=== PATIENT | female | born 1960 | race Caucasian/White ===

== ENCOUNTER 2016-08-02 15:12 | Emergency (ER) | payer BC, OTHER ==
[2016-08-02] MEDS ORDERED: ALPRAZolam 0.25 MG TAB PO ONE (15:23)
[2016-08-02] MEDS ORDERED: HYDROcodone 7.5MG/APAP 325MG 1 EA TAB PO ONE (15:23)
[2016-08-02 15:24] VITALS: TEMP 97.6
[2016-08-02] MEDS ORDERED: NEOMYCIN-BACITRACIN-POLYMYXIN 0.9 GM UD TOP ONE ×2 (15:43→16:16)
[2016-08-02] MEDS ORDERED: POVIDONE IODINE 10 % 15 ML UD TOP ONE (15:43)
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
[2016-08-02 18:55] VITALS: BP 121/78; O2SAT 96
== END 2016-08-02 18:54 | disposition home or self-care (01) ==
LOC: ER 15:12
DX: S80.211A Abrasion, right knee, initial encounter (principal); S60.511A Abrasion of right hand, initial encounter; S50.312A Abrasion of left elbow, initial encounter; S30.810A Abrasion of lower back and pelvis, initial encounter; S20.419A Abrasion of unspecified back wall of thorax, initial encounter; M25.551 Pain in right hip; V28.5XXA Motorcycle passenger injured in noncollision transport accident in traffic accident, initial encounter; Y92.410 Unspecified street and highway as the place of occurrence of the external cause